=== PATIENT | female | born 1995 | race Hispanic/Latino ===

== ENCOUNTER 2022-08-10 14:12 | Outpatient (CLI) | payer OTHER | END 2022-08-10 14:13 | disposition home or self-care (01) | LOC: CSHULT 14:12 | PROVIDERS: ATTEND Family Medicine | DX: Z34.82 Encounter for supervision of other normal pregnancy, second trimester (principal); Z3A.22 22 weeks gestation of pregnancy | CPT/HCPCS: 76805 ==

== ENCOUNTER 2022-11-30 12:00 | Inpatient (IN) | payer OTHER ==
[2022-11-30 12:16] LABS: Syphilis Antibody Nonreactive (Nonreactive); Syphilis Antibody Index 0.05 S/CO (<1.00 Non-Reactive)
[2022-11-30 12:24] LABS: HBSAg Index 0.13 S/CO (0-0.99); Hep B Surf Ag Non-Reactive S/CO (NonReactive)
[2022-11-30 12:30] LABS: Hemoglobin 12.1 g/dL (12.0-15.5); Platelet Count 196 10x3/uL (150-450)
[2022-12-01] MEDS ORDERED: Ondansetron PF 4 MG/2 ML Vial IVP PRN ×3 (05:29→09:46)
[2022-12-01] MEDS ORDERED: Carboprost 250 MCG/ML AMP IM PRN (05:29)
[2022-12-01] MEDS ORDERED: CEFAZOLIN 2 GM in Sodium Chloride 0.9% 100 ML IVPB SCH (05:29)
[2022-12-01] MEDS ORDERED: Misoprostol 200 MCG TAB PR PRN (05:29)
[2022-12-01] MEDS ORDERED: Bicitra 30 ML UDCUP PO PRN (05:29)
[2022-12-01] MEDS ORDERED: Promethazine HCl 25 MG/ML VIAL IM PRN ×3 (05:29→09:46)
[2022-12-01] MEDS ORDERED: Methylergonovine 0.2 MG/ML VIAL IM PRN (05:29)
[2022-12-01] MEDS ORDERED: Famotidine/PF 20 mg/2ml Vial SLOW IVP PRN (05:29)
[2022-12-01] MEDS ORDERED: Tranexamic Acid 1,000 MG/10 ML VIAL IVP PRN (05:29)
[2022-12-01] MEDS ORDERED: Diphenoxylate HCl/Atropine Tablet PO PRN (05:29)
[2022-12-01] MEDS ORDERED: hydrALAZINE 20 MG/ML VIAL SLOW IVP PRN ×2 (05:29→09:46)
[2022-12-01] MEDS ORDERED: Lactated Ringer's 1,000 ML IV SCH (05:29)
[2022-12-01] MEDS ORDERED: NS w/ Oxytocin 30 units 500 ML IV SCH (05:29)
[2022-12-01 05:58] VITALS: BMI 31.8
[2022-12-01] MEDS ORDERED: ePHEDrine Sulfate 50 MG/10 ML VIAL ONE (07:11)
[2022-12-01] MEDS ORDERED: Morphine PF 10 MG/10 ML VIAL ONE (07:11)
[2022-12-01] MEDS ORDERED: Ketorolac Tromethamine 30 MG/ML VIAL ONE (07:12)
[2022-12-01] MEDS ORDERED: Oxytocin 10 UNITS/ML VIAL ONE (07:12)
[2022-12-01] MEDS ORDERED: Ondansetron PF 4 MG/2 ML Vial ONE (07:12)
[2022-12-01] MEDS ORDERED: Phenylephrine 40 MG/NS 250 ML 250 ML ONE (07:12)
[2022-12-01] MEDS ORDERED: PHENYLEPHRINE-NS 100 MCG/ML 10 ML SYRINGE ONE (07:12)
[2022-12-01] MEDS ORDERED: Moisturizing Cream (Eucerin) 113 GM JAR TOP PRN (07:20)
[2022-12-01] MEDS ORDERED: Promethazine HCl 25 MG SUPP PR PRN (07:20)
[2022-12-01] MEDS ORDERED: Fentanyl 100 MCG/2 ML VIAL SLOW IVP PRN (07:20)
[2022-12-01] MEDS ORDERED: Ondansetron HCl/PF 4 MG/2 ML Vial IVP PRN (07:20)
[2022-12-01] MEDS ORDERED: Meperidine HCl/PF 25 MG/ML VIAL SLOW IVP PRN (07:20)
[2022-12-01] MEDS ORDERED: diphenhydrAMINE 50 MG/ML VIAL IVP PRN (07:20)
[2022-12-01] MEDS ORDERED: Naloxone HCl 0.4 mg/ml Vial IV PRN (07:20)
[2022-12-01] MEDS ORDERED: Naloxone HCl 0.4 mg/ml Vial IVP PRN ×2 (07:20)
[2022-12-01] MEDS ORDERED: Communication Order-Pharmacy FS SCH (07:30)
[2022-12-01] MEDS ORDERED: Bisacodyl 10 MG SUPP PR PRN (09:46)
[2022-12-01] MEDS ORDERED: Lanolin Ointment 7 GM TUBE TOP PRN (09:46)
[2022-12-01] MEDS ORDERED: Boostrix 0.5 ML (Tdap) VIAL (>/=7 yrs of age) IM ONE (09:46)
[2022-12-01] MEDS ORDERED: diphenhydrAMINE 25 MG CAP PO PRN (09:46)
[2022-12-01] MEDS ORDERED: HYDROcodone/Acetaminophen 5/325 mg Tablet PO PRN (09:46)
[2022-12-01] MEDS ORDERED: metroNIDAZOLE 500 MG in Premix Bag 1 BAG IVPB SCH (10:00)
[2022-12-01] MEDS ORDERED: fentaNYL 50 mcg/mL 1 mL Vial SLOW IVP SCH (12:45)
[2022-12-01] MEDS ORDERED: Ketorolac Tromethamine 30 MG/ML VIAL IVP SCH (14:55)
[2022-12-01] MEDS ORDERED: Ketorolac Tromethamine 30 MG/ML VIAL IVP PRN (15:00)
[2022-12-01] MEDS: Ketorolac Tromethamine 30 MG/ML VIAL IVP SCH ×2 (17:48→21:30)
[2022-12-01] MEDS: Docusate 100 MG CAP PO SCH (21:30)
[2022-12-01] MEDS: Ferrous Sulfate 325 MG TAB PO SCH (21:30)
[2022-12-02 03:30] LABS: Hemoglobin 10.2 g/dL (12.0-15.5); Mean Corpuscular HGB CONC 34.5 g/dL (32.0-36.0); Mean Corpuscular Hemoglobin 29.8 pg (27.0-33.0); Mean Corpuscular Volume 86.5 fl (81.6-98.3); Mean Platelet Volume 10.6 fl (7.4-10.4); Platelet Count 158 10x3/uL (150-450); RBC Distribution Width 13.2 % (11.5-14.5); Red Blood Cell (RBC) Count 3.42 10x6/uL (3.90-5.03); White Blood Cell (WBC) Count 8.4 10x3/uL (3.5-10.5)
[2022-12-02] MEDS: Ketorolac Tromethamine 30 MG/ML VIAL IVP SCH ×2 (03:34→09:10)
[2022-12-02] MEDS: Prenatal Vitamin 1 TAB PO SCH (09:09)
[2022-12-02] MEDS: Docusate 100 MG CAP PO SCH ×2 (09:09→20:02)
[2022-12-02] MEDS: Simethicone Chewable 80 MG TAB PO PRN ×2 (09:10→14:52)
[2022-12-02] MEDS: HYDROcodone/Acetaminophen 5/325 mg Tablet PO PRN ×2 (09:10→20:02)
[2022-12-02] MEDS: Ferrous Sulfate 325 MG TAB PO SCH ×2 (09:10→20:02)
[2022-12-02] MEDS: Ibuprofen 800 MG TAB PO SCH ×2 (14:48→21:31)
[2022-12-03] MEDS: Ibuprofen 800 MG TAB PO SCH ×3 (05:30→21:28)
[2022-12-03] MEDS: Docusate 100 MG CAP PO SCH ×2 (09:11→21:28)
[2022-12-03] MEDS: Simethicone Chewable 80 MG TAB PO PRN ×2 (09:11→14:11)
[2022-12-03] MEDS: Prenatal Vitamin 1 TAB PO SCH (09:11)
[2022-12-03] MEDS: HYDROcodone/Acetaminophen 5/325 mg Tablet PO PRN ×2 (09:13→14:11)
[2022-12-03] MEDS: Ferrous Sulfate 325 MG TAB PO SCH ×2 (09:32→21:30)
[2022-12-04] MEDS: Ibuprofen 800 MG TAB PO SCH ×2 (06:39→14:12)
[2022-12-04 07:46] VITALS: BP 109/56; TEMP 98.4
[2022-12-04] MEDS: Prenatal Vitamin 1 TAB PO SCH (08:47)
[2022-12-04] MEDS: Docusate 100 MG CAP PO SCH (08:47)
[2022-12-04] MEDS: Ferrous Sulfate 325 MG TAB PO SCH (08:47)
== END 2022-12-04 17:15 | disposition home or self-care (01) | DRG 788 ==
LOC: CSHLD 12-01 05:21 → CSHPP 12-01 10:12
PROVIDERS: ADMIT Family Medicine; ATTEND Family Medicine
PROC: 10D00Z1 Extraction of Products of Conception, Low, Open Approach (ICD-10-PCS; principal; 2022-12-01)
PROC: 3E0P05Z Introduction of Adhesion Barrier into Female Reproductive, Open Approach (ICD-10-PCS; 2022-12-01)
DX: O34.211 Maternal care for low transverse scar from previous cesarean delivery (principal); Z79.899 Other long term (current) drug therapy; Z3A.39 39 weeks gestation of pregnancy; Z37.0 Single live birth
CPT/HCPCS: 51702; 85014; 85018; 85027; 85049; 86780; 86850; 86900; 86901; 87340; J1885; J2274; J2405; J2590; J3010; J3490; S0028